=== PATIENT | female | born 1995 | race Caucasian/White ===

== ENCOUNTER → 2016-03-08 | Outpatient (CLI) | payer BC ==
[~2016-03-08] MED LIST: LRT5 PO
--- NOTE | 2016-03-08 17:03 | ECHOCARDIOGRAM REPORT ---
*NOTICE TO RECEIVING [employer] This information is strictly Confidential and protected under [place] law. [place] law prohibits you from making any further disclosure of this information unless further disclosure is expressly permitted by the written consent of the person to whom it pertains or is authorized by law. A general authorization for the release of medical or other information is not sufficient for this purpose. Hospital accepts no responsibility if the information is made available to any other person, INCLUDING THE PATIENT. Interpretation Summary * Name: LUCAS CANTRELL Study Date: 03/08/2016 02:28 PM BP: 133/54 mmHg * Patient Location: [facility] HR: [id number] * : 1995 (M/d/yyyy) Gender: Female Height: 66 in * Age: 20 yrs Ethnicity: [place] Weight: 130 lb * Ordering Physician: Josiah Way MD * Referring Physician: Josiah Way MD * Performed By: Myesha Chin RDCS * * Reason For Study: Palpitations * BSA: 1.7 m2 * -- Conclusions -- * 1. Normal LV size, wall thickness and function. LVEF 60-65%. No regional wall motion abnormalities. * 2. Normal RV size and function. * 3. Borderline mitral valve anterior leaflet prolapse. Trace MR. Otherwise no other significant valvular pathology. * 4. No prior studies for comparison. Procedure Details * A complete two-dimensional transthoracic echocardiogram was performed (2D, M-mode, Doppler and color flow Doppler). Left Ventricle * The left ventricle is normal in size. * There is normal left ventricular wall thickness. * Ejection Fraction = 60-65%. * No regional wall motion abnormalities noted. Right Ventricle * The right ventricle is normal in size and function. Atria * The left atrial size is normal. * Right atrial size is normal. * No ASD detected; PFO is not assessed. Mitral Valve * The mitral valve is grossly normal. * There is borderline mitral valve prolapse. * There is no mitral valve stenosis. * There is trace mitral regurgitation. Tricuspid Valve * The tricuspid valve is not well visualized, but is grossly normal. * There is no tricuspid stenosis. * Significant tricuspid regurgitation is absent. Aortic Valve * The aortic valve opens well. * No hemodynamically significant valvular aortic stenosis. * There is no significant aortic regurgitation. Pulmonic Valve * The pulmonic valve is not well visualized. * There is no pulmonic valvular stenosis. * There is no pulmonic valvular regurgitation. Great Vessels * The aortic root and proximal ascending aorta are normal sized. * No Doppler or imaging evidence of an aortic coarctation. Pericardium/Pleural * There is no pericardial effusion. Great Vessels * Normal inferior vena cava size and collapsability with sniff indicates a normal right atrial pressure of 3 mmHg MMode 2D Measurements and Calculations IVSd 0.44 cm IVSs 0.94 cm LVIDd 4.1 cm LVIDs 2.9 cm LVPWd 0.81 cm LVPWs 0.99 cm IVS/LVPW 0.54 FS 30.0 % EDV(Teich) 74.1 ml ESV(Teich) 31.4 ml EF(Teich) 57.6 % EDV(cubed) 68.8 ml ESV(cubed) 23.6 ml EF(cubed) 65.6 % % IVS thick 113.4 % % LVPW thick 22.3 % LV mass(C)d 70.3 grams LV mass(C)dI 42.2 grams/m\S\2 LV mass(C)s 72.6 grams LV mass(C)sI 43.6 grams/m\S\2 CO(Teich) 3.4 l/min CI(Teich) 2.0 l/min/m\S\2 SV(Teich) 42.7 ml SI(Teich) 25.6 ml/m\S\2 CO(cubed) 3.6 l/min CI(cubed) 2.1 l/min/m\S\2 SV(cubed) 45.1 ml SI(cubed) 27.1 ml/m\S\2 Ao root diam 2.6 cm Ao root area 5.2 cm\S\2 ACS 1.8 cm LA dimension 2.3 cm asc Aorta Diam 2.5 cm LA/Ao 0.91 LVOT diam 2.0 cm LVOT area 3.1 cm\S\2 LVAd ap4 29.1 cm\S\2 LVLd ap4 9.0 cm EDV(MOD-sp4) 78.4 ml LVAs ap4 15.0 cm\S\2 LVLs ap4 6.9 cm ESV(MOD-sp4) 27.8 ml EF(MOD-sp4) 64.5 % LVAd ap2 26.8 cm\S\2 LVLd ap2 8.4 cm EDV(MOD-sp2) 70.6 ml LVAs ap2 13.7 cm\S\2 LVLs ap2 6.5 cm ESV(MOD-sp2) 25.0 ml EF(MOD-sp2) 64.6 % CO(MOD-sp4) 4.0 l/min CI(MOD-sp4) 2.4 l/min/m\S\2 SV(MOD-sp4) 50.6 ml SI(MOD-sp4) 30.4 ml/m\S\2 CO(MOD-sp2) 3.6 l/min CI(MOD-sp2) 2.2 l/min/m\S\2 SV(MOD-sp2) 45.6 ml SI(MOD-sp2) 27.4 ml/m\S\2 Doppler Measurements and Calculations MV E max sharath 111.1 cm/sec MV A max sharath 67.9 cm/sec MV E/A 1.6 MV dec time 0.25 sec Ao V2 max 130.3 cm/sec Ao max PG 6.8 mmHg Ao max PG (full) 1.5 mmHg BRYNN(V,A) 2.7 cm\S\2 BRYNN(V,D) 2.7 cm\S\2 LV V1 max PG 5.3 mmHg LV V1 max 115.4 cm/sec PA V2 max 102.5 cm/sec PA max PG 4.2 mmHg PA acc slope 733.6 cm/sec\S\2 PA acc time 0.15 sec PA pr(Accel) 10.9 mmHg
== END | disposition home or self-care (01) ==
LOC: C.CPL 14:16
PROVIDERS: ATTEND Family Medicine
DX: R00.2 Palpitations (principal)

== ENCOUNTER → 2016-09-26 | Outpatient (CLI) | payer BC ==
--- NOTE | 2016-09-26 16:32 | DIAGNOSTIC IMAGING REPORT ---
LEFT SUPRACLAVICULAR ULTRASOUND. CLINICAL HISTORY: Palpable mass left mid clavicle. COMPARISON STUDY: No previous studies for comparison. FINDINGS: Ultrasonographic evaluation the mid left clavicular region was performed. This reveals a 9 x 5 x 5 mm hypoechoic lesion likely representing a lymph node. Visualization of the area is limited due to clavicular shadowing. IMPRESSION: The palpable abnormality, appears to correspond to a 9 x 5 x 5 mm hypoechoic lesion, likely representing a lymph node. Electronically signed by: Rigoberto Villalta M.D. 09/26/2016 4:31 PM Dictated Date/Time: 09/26/2016 4:29 PM
== END | disposition home or self-care (01) ==
LOC: C.ULTR 16:13
PROVIDERS: ATTEND Nurse Practitioner Family
DX: R59.0 Localized enlarged lymph nodes (principal)

== ENCOUNTER → 2017-01-08 | Outpatient (CLI) | payer BC ==
--- NOTE | 2017-01-08 12:31 | DIAGNOSTIC IMAGING REPORT ---
LEFT SUPRACLAVICULAR ULTRASOUND CLINICAL HISTORY: LT LYMPH NODE ENLARGEMENT COMPARISON STUDY: Ultrasound 09/26/2016. FINDINGS: The patient was scheduled for biopsy of a left supraclavicular lymph node seen on the prior study. The patient described this lymph node having decreased in size in the interval. Imaging of the left supraclavicular region did not demonstrate the lymph node. Therefore, the biopsy was not performed. IMPRESSION: The left supraclavicular lymph node seen on the prior study was not identified on today's examination. Therefore, the biopsy was not performed. However, if the patient's palpable abnormality increases in size a repeat ultrasound guided biopsy is recommended. Electronically signed by: Augustin Nicole M.D. 01/08/2017 12:30 PM Dictated Date/Time: 01/08/2017 12:27 PM
== END | disposition home or self-care (01) ==
LOC: C.ULTR 10:48
PROVIDERS: ATTEND Family Medicine
DX: R59.9 Enlarged lymph nodes, unspecified (principal)